=== PATIENT | male | born 1945 | race Caucasian/White ===

== ENCOUNTER → 2017-06-17 | Outpatient (CLI) | payer MEDICARE, OTHER ==
[~2017-06-17] MED LIST: AMLO10; AMLO5 PO; ASPI81EC; LANS30EC PO; METO100ER PO; MICARDIS; MULVITA PO; TELM80/12.5 PO; WARF10 PO; WARF2.5 PO; [UNRECOGNIZED DRUG - REMARK]
== END ==
LOC: PLD 08:51 → LAB SHORT 08:51
DX: D48.5 Neoplasm of uncertain behavior of skin (principal)
CPT/HCPCS: 88305

== ENCOUNTER → 2018-05-05 | Outpatient (CLI) | payer MEDICARE, OTHER | END | disposition home or self-care (01) | LOC: PLD 14:43 → LAB SHORT 14:43 | DX: L57.0 Actinic keratosis (principal) | CPT/HCPCS: 88305 ==

== ENCOUNTER → 2018-07-19 | Outpatient (CLI) | payer MEDICARE, OTHER | END | disposition home or self-care (01) | LOC: LAB SHORT 11:14 → PLD 11:14 | DX: D04.72 Carcinoma in situ of skin of left lower limb, including hip (principal) | CPT/HCPCS: 88305 ==

== ENCOUNTER 2020-03-19 16:26 | Observation (INO) | payer MEDICARE, OTHER ==
[~2020-03-19] VITALS: Ht 170.2 cm; Wt 79.5 kg
[2020-03-19 17:08] LABS: BASOPHILS ABSOLUTE AUTO 0.03 K/mm3 (0.00-0.23); BASOPHILS PERCENT AUTO 1 % (0-2); EOSINOPHILS ABSOLUTE AUTO 0.11 K/mm3 (0.00-0.68); EOSINOPHILS PERCENT AUTO 2 % (0-6); Hematocrit 41.5 % (37.0-53.0); Hemoglobin 13.6 g/dL (13.5-17.5); IMMATURE GRAN ABSOLUTE AUTO 0.02 K/mm3 (0.00-0.10); IMMATURE GRAN PERCENT AUTO 0 % (0-1); LYMPHOCYTES ABSOLUTE AUTO 1.44 K/mm3 (0.84-5.20); LYMPHOCYTES PERCENT AUTO 23 % (21-46); MONOCYTES PERCENT AUTO 8 % (4-13); Mean Corpuscular HGB Conc 32.8 g/dL (31.5-36.5); Mean Corpuscular Volume 91 fL (80-100); Mean Platelet Volume 9.4 fL (9.1-12.4); NEUTROPHILS PERCENT AUTO 67 % (41-73); Platelet Count 220 K/mm3 (150-400); RDW Standard Deviation 40.6 fL (35.1-46.3); Red Blood Cell Count 4.54 M/mm3 (4.30-5.90)
[2020-03-19 17:28] LABS: Alanine Aminotransfer (ALT/SGP 27 U/L (12-78); Albumin, Blood 3.9 g/dL (3.4-5.0); Albumin/Globulin Ratio 1.1 (0.8-1.8); Alk Phos 52 U/L (50-136); Anion Gap 5 mmol/L (6-16); Aspartate Aminotrans (AST/SGOT 22 U/L (12-37); Bilirubin, Total 0.7 mg/dL (0.1-1.0); Blood Urea Nitrogen 20 mg/dL (8-24); Bun/Creatinine Ratio 19.6 (12.0-20.0); CO2, Blood 26 mmol/L (21-32); Chloride, Blood 108 mmol/L (98-108); Creatinine, Blood 1.02 mg/dL (0.60-1.20); Globulin, Blood 3.5 g/dL (2.2-4.0); Glomerular Filtration Rate >60 (60-); Glucose, Blood 100 mg/dL (70-99); Sodium, Blood 139 mmol/L (136-145); Total Protein, Blood 7.4 g/dL (6.4-8.2)
[2020-03-19] MEDS ORDERED: VALSARTAN320 MG PO (21:00)
[2020-03-19] MEDS ORDERED: LANSOPRAZOLE30 MG PO (21:01)
[2020-03-19] MEDS ORDERED: ELIQUIS5 M3 PO (21:01)
[2020-03-19] MEDS ORDERED: DOXAZOSIN MESYLA4 M1 PO (21:02)
[2020-03-19] MEDS ORDERED: ZALE10 PO (21:02)
[2020-03-19 22:07] LABS: Source, Urine Voided
[2020-03-19 22:15] LABS: Bilirubin, Urine Neg (Neg); Blood, Urine 3+ (Neg); Glucose Qualitative, Urine Neg (Neg); Ketones, Urine 1+ (Neg); Leukocyte Esterase, Urine Neg (Neg); Nitrite, Urine Neg (Neg); Protein, Urine 1+ (Neg); Specific Gravity, Urine 1.015 (1.003-1.022); Urobilinogen, Urine NORM (Normal)
[2020-03-19 22:17] LABS: Appearance, Urine Clear (Clear); Color, Urine Yellow (P-Yellow)
[2020-03-19 22:21] LABS: Bacteria Few /hpf; Squamous Epithelial Cells Not Seen /hpf (Few); White Blood Cells, Urine 0-2 /hpf (0-5)
[2020-03-19 23:13] LABS: International Normalized Ratio 0.97; Prothrombin Time Results 10.4 Sec (9.7-11.5)
[2020-03-20] MEDS ORDERED: AREDS EYE VIT PO (00:26)
[2020-03-20] MEDS ORDERED: ALBU90OI INH (00:46)
--- NOTE | 2020-03-20 00:59 | NUR ---
0030 PT ARRIVED TO ROOM FROM ER VIA GURNEY IN STABLE CONDITION. DENIES ANY DISCOMFORT AT THIS TIME. NO OTHER APPARENT SIGNS OF DISTRESS. CALL LIGHT IS IN REACH. 0100 PT DECLINED TO WEAR SCD'S. TELE IS NSR AT 66 PER TELE HEAVY EQUIPMENT DIESEL MECHANIC.
[2020-03-20 01:28] LABS: BASOPHILS ABSOLUTE AUTO 0.03 K/mm3 (0.00-0.23); BASOPHILS PERCENT AUTO 1 % (0-2); EOSINOPHILS PERCENT AUTO 2 % (0-6); Hemoglobin 13.7 g/dL (13.5-17.5); IMMATURE GRAN ABSOLUTE AUTO 0.01 K/mm3 (0.00-0.10); IMMATURE GRAN PERCENT AUTO 0 % (0-1); LYMPHOCYTES ABSOLUTE AUTO 1.64 K/mm3 (0.84-5.20); LYMPHOCYTES PERCENT AUTO 27 % (21-46); MONOCYTES ABSOLUTE AUTO 0.59 K/mm3 (0.16-1.47); MONOCYTES PERCENT AUTO 10 % (4-13); Mean Corpuscular HGB 29.9 pg (26.0-34.0); Mean Corpuscular HGB Conc 32.6 g/dL (31.5-36.5); Mean Corpuscular Volume 92 fL (80-100); Mean Platelet Volume 9.4 fL (9.1-12.4); NEUTROPHILS PERCENT AUTO 61 % (41-73); Platelet Count 222 K/mm3 (150-400); RDW Standard Deviation 40.4 fL (35.1-46.3); Red Blood Cell Count 4.58 M/mm3 (4.30-5.90); White Blood Cell Count 6.07 K/mm3 (4.00-11.30)
[2020-03-20 01:42] LABS: Anion Gap 4 mmol/L (6-16); Blood Urea Nitrogen 18 mg/dL (8-24); Bun/Creatinine Ratio 19.8 (12.0-20.0); CO2, Blood 31 mmol/L (21-32); Calcium, Blood 8.7 mg/dL (8.5-10.1); Chloride, Blood 106 mmol/L (98-108); Creatinine, Blood 0.91 mg/dL (0.60-1.20); Glomerular Filtration Rate >60 (60-); Glucose, Blood 91 mg/dL (70-99); Potassium, Blood 3.8 mmol/L (3.5-5.5); Sodium, Blood 141 mmol/L (136-145)
--- NOTE | 2020-03-20 05:12 | NUR ---
0200 PT LYING IN BED, EYES CLOSED, APPEARS TO BE RESTING. BREATHING IS EVEN, UNLABORED. NO APPARENT SIGNS OF DISTRESS. CALL LIGHT IS IN REACH.
--- NOTE | 2020-03-20 05:13 | NUR ---
0400 PT LYING IN BED, EYES CLOSED, APPEARS TO BE RESTING. BREATHING IS EVEN, UNLABORED. NO APPARENT SIGNS OF DISTRESS. CALL LIGHT IS IN REACH.
--- NOTE | 2020-03-20 06:26 | NUR ---
PT LYING IN BED, LYING IN BED, EYES CLOSED, APPEARS TO BE RESTING.WAKES EASILY TO VERBAL STIMULI. NO APPARENT SIGNS OF DISTRESS. DENIES NEED FOR ANYTHING AT THIS TIME. NEURO CHECKS UNCHANGED THROUGHOUT SHIFT. CALL LIGHT IN REACH. NO OTHER CHANGES THIS SHIFT.
--- NOTE | 2020-03-20 06:29 | NUR ---
PT IS AAO X 4, ON RA. NEURO CHECKS NORMAL THROUGHOUT SHIFT. DENIED ANY DISCOMFORT FOR THIS SHIFT. TELE NSR.
[2020-03-20 09:23] LABS: CPK Creatine Kinase 196 U/L (39-308)
--- NOTE | 2020-03-20 11:59 | NUR ---
Spiritual care visit conducted. Patient is sitting up in bed and alert. Patient explains about the events that led to his hospitalization and the current plan of care. Patient talks about his family and his 35yr career working for [employer]. He also discusses his mixure of the Yazdanism and Tenriism views and the richness of both traditions. Patient discusses the fears associated with a medical crisis. I normalize patient's experience and provide prayer. Patient responds well and shows signs of reduced stress. I will continue to remain available to patient and family.
--- NOTE | 2020-03-20 18:07 | NUR ---
DISCHARGE NOTE- PT WAS GIVEN VERBAL ANE WRITTEN DISCHARGE INSTRUCTIONS AND ACKNOWLEDGED UNDERSTANDING OF THEM. PT FOLLOW UP APPOINTMENT WAS SCHEDULED BY RN FOR TOMORROW AT 1100 PT IS AWARE. PT SPOUSE PRESENT FOR DISCHARGE TEACHING. IV AND TELE DC'D AT THE TIME OF DISCHARGE. PT WAS INSTRUCTED TO TAKE HIS HOME BP MEDICATIONS HE HAS NOT RECIEVED TODAY WHEN HE GETS HOME. RN CALLED PT AT HOME TO REMIND AND HE VERBALLY CONFIRMED HE WAS TO TAKE HIS ONCE DAILY BP MEDS (PER DR ROB ORDER) TONIGHT. PT HAD NO FURTHER QUESTIONS AT THE TIME OF DISCHARGE AND WAS ESCORTED OUT VIA WC BY THE BILLING DEPARTMENT SUPERVISOR.
== END 2020-03-20 16:35 | disposition home or self-care (01) ==
LOC: ER 16:26 → MEDS 16:27
PROVIDERS: Emergency Medicine; Internal Medicine; Nurse Practitioner Acute Care; Physician Assistant; ADMIT Internal Medicine
DX: G45.9 Transient cerebral ischemic attack, unspecified (principal); I10 Essential (primary) hypertension; I48.0 Paroxysmal atrial fibrillation; G47.33 Obstructive sleep apnea (adult) (pediatric); I49.3 Ventricular premature depolarization; I48.92 Unspecified atrial flutter; R41.3 Other amnesia; K21.9 Gastro-esophageal reflux disease without esophagitis; R77.8 Other specified abnormalities of plasma proteins; Z79.01 Long term (current) use of anticoagulants; Z87.891 Personal history of nicotine dependence
CPT/HCPCS: 36415; 70450; 70551; 71046; 80048; 80053; 81001; 82550; 83735; 84484; 85025; 85610; 85730; 93005; 93010; 94660; 94762; 99285-25; A9270; G0378

== ENCOUNTER → 2021-12-16 | Outpatient (CLI) | payer MEDICARE, OTHER ==
[~2021-12-16] MED LIST changes: +ALBU90OI INH; +AREDS EYE VIT PO; +DOXAZOSIN MESYLA4 M1 PO; +ELIQUIS5 M3 PO; +LANSOPRAZOLE30 MG PO; +VALSARTAN320 MG PO; +ZALE10 PO
== END | disposition home or self-care (01) ==
LOC: LAB 15:10 → LAB SHORT 15:10
DX: C44.629 Squamous cell carcinoma of skin of left upper limb, including shoulder (principal)
CPT/HCPCS: 88305

== ENCOUNTER → 2022-02-16 | Outpatient (CLI) | payer MEDICARE, OTHER | END | disposition home or self-care (01) | LOC: LAB SHORT 14:47 | DX: C44.319 Basal cell carcinoma of skin of other parts of face (principal); L57.0 Actinic keratosis | CPT/HCPCS: 88305 ==

== ENCOUNTER → 2023-02-09 | Outpatient (CLI) | payer MEDICARE, OTHER | LOC: LAB SHORT 11:45 → LAB 11:45 | DX: L57.0 Actinic keratosis (principal); B07.9 Viral wart, unspecified | CPT/HCPCS: 88305 ==

== ENCOUNTER → 2023-03-10 | Outpatient (CLI) | payer MEDICARE, OTHER | LOC: LAB 12:32 → LAB SHORT 12:32 | DX: C44.219 Basal cell carcinoma of skin of left ear and external auricular canal (principal) | CPT/HCPCS: 88305 ==

== ENCOUNTER → 2023-03-29 | Outpatient (CLI) | payer MEDICARE, OTHER | END | disposition home or self-care (01) | LOC: LAB SHORT 12:21 → LAB 12:21 | DX: Z08 Encounter for follow-up examination after completed treatment for malignant neoplasm (principal); L73.9 Follicular disorder, unspecified; Z85.9 Personal history of malignant neoplasm, unspecified | CPT/HCPCS: 88305 ==

== ENCOUNTER → 2023-04-21 | Outpatient (CLI) | payer MEDICARE, OTHER | LOC: PLD 07:36 → LAB SHORT 07:36 | DX: L57.0 Actinic keratosis (principal) | CPT/HCPCS: 88305 ==